=== PATIENT | male | born 1950 | race Caucasian/White ===

== ENCOUNTER 2021-01-07 04:52 | Emergency (ER) | payer MEDICARE, OTHER ==
[2021-01-07] MEDS ORDERED: Acetaminophen/oxyCODONE 325-5 MG Tab PO STA (05:52)
[2021-01-07] MEDS ORDERED: Ketorolac 30 MG/ML SDV IM ONE (05:53)
--- NOTE | 2021-01-07 05:59 | EDM.PDOC ---
ED HPI GENERAL MEDICAL PROBLEM - General Chief Complaint: Abdominal Pain Stated Complaint: ABD PAIN Time Seen by Provider: 01/07/21 05:45 Source of Information: Reports: Patient, Family, Old Records History Limitations: Reports: No Limitations - History of Present Illness INITIAL COMMENTS - FREE TEXT/NARRATIVE: 70 yo male presents with RUQ abd vs R anterior lower chest pain that may have began after he accidentally walked into a work bench at work a couple weeks ago. The pain was minimal until last night about 0200h. On his way to work this morning he diverted to the ER due to breaking out in a cold sweat from the pain. His has since joined him here in the ER. No fever or SOB. Onset: Today (got much worse today) Onset Date: 01/07/21 Onset Time: 02:00 (got much worse at this time) Duration: Hour(s): Location: Reports: Chest (R ant/lower), Abdomen (vs RUQ) Quality: Reports: Sharp Severity: Moderate (severe at times) Improves with: Reports: None Worsens with: Reports: Breathing (deep breathing worsens) Context: Reports: Other (See HPI) Associated Symptoms: Reports: Chest Pain (R lower anterior). Denies: Cough, Fever/Chills, Nausea/Vomiting, Rash, Shortness of Breath Treatments [employer]: Reports: Other (see below) (none) right lower back Pain Score (Numeric/FACES): 20 - Related Data Allergies Allergy/AdvReac Type Severity Reaction Status Date / Time No Known Allergies Allergy Verified 01/07/21 05:40 Home Meds: Home Meds Aspirin [Tavo Chewable] 81 mg PO DAILY 01/07/21 [History] allopurinoL [Zyloprim] 100 mg PO DAILY 01/07/21 [History] lisinopriL [Lisinopril] 10 mg PO DAILY 01/07/21 [History] Social & Family History - Tobacco Use Tobacco Use Status *Q: Never Tobacco User - Caffeine Use Caffeine Use: Reports: Soda - Recreational Drug Use Recreational Drug Use: No ED ROS GENERAL - Review of Systems Review Of Systems: See Below Constitutional: Denies: Fever, Chills HEENT: Reports: No Symptoms Respiratory: Reports: Pleuritic Chest Pain. Denies: Shortness of Breath, Wheezing, Cough, Sputum, Hemoptysis Cardiovascular: Reports: Chest Pain (R anterior/lower). Denies: Dyspnea on Exertion, Edema GI/Abdominal: Reports: Abdominal Pain (? RUQ abdominal pain). Denies: Black Stool, Bloody Stool, Constipation, Diarrhea, Distension, Flatus, Hematemesis, Hematochezia, Melena, Nausea, Vomiting : Reports: No Symptoms Musculoskeletal: Reports: No Symptoms Skin: Reports: No Symptoms Neurological: Reports: No Symptoms Psychiatric: Reports: No Symptoms ED EXAM, GI/ABD - Physical Exam Exam: See Below Exam Limited By: No Limitations General Appearance: Alert, WD/WN, No Apparent Distress Eyes: Bilateral: Normal Appearance Ears: Normal External Exam, Normal Canal, Hearing Grossly Normal Nose: Normal Inspection, No Blood Throat/Mouth: Normal Inspection, Normal Lips, Normal Oropharynx, Normal Voice, No Airway Compromise Head: Atraumatic, Normocephalic Neck: Normal Inspection Respiratory/Chest: No Respiratory Distress, Lungs Clear, Normal Breath Sounds, No Accessory Muscle Use. No: Chest Non-Tender (tender on R anterior lower most ribs) Cardiovascular: Regular Rate, Rhythm, No Edema GI/Abdominal Exam: Normal Bowel Sounds, Soft, No Distention, Tender (RUQ tenderness on exam). No: Non-Tender, Distended Back Exam: Normal Inspection. No: CVA Tenderness (R), CVA Tenderness (L) Extremities: Normal Inspection, Normal Range of Motion, Non-Tender, No Pedal Edema. No: Pedal Edema, Faviola's Sign Neurological: Alert, Oriented, CN II-XII Intact, Normal Cognition, No Mo tor/Sensory Deficits Psychiatric: Normal Affect, Normal Mood Skin Exam: Warm, Dry, Intact, Normal Color, No Rash Course - Vital Signs Last Recorded V/S: Last Vital Signs Temp 36.0 C L 01/07/21 05:39 Pulse 46 L 01/07/21 06:39 Resp 16 01/07/21 05:39 BP 138/80 01/07/21 06:39 Pulse Ox 100 01/07/21 05:39 - Orders/Labs/Meds Orders: Active Orders 24 hr Category Date Time Status Abdomen Ltd [US] Stat Exams 01/07/21 06:27 Ordered Ribs 3V wo Chest Rt [CR] Stat Exams 01/07/21 05:53 Taken Labs: Laboratory Tests 01/07/21 01/07/21 Range/Units 06:03 06:03 WBC 6.8 (4.5-11.0) K/uL RBC 4.02 L (4.30-5.90) M/uL Hgb 12.5 (12.0-15.0) g/dL Hct 38.6 L (40.0-54.0) % MCV 96 (80-98) fL MCH 31 (27-31) pg MCHC 32 (32-36) % Plt Count 213 (150-400) K/uL Sodium 146 (140-148) mmol/L Potassium 4.2 (3.6-5.2) mmol/L Chloride 106 (100-108) mmol/L Carbon Dioxide 29 (21-32) mmol/L Anion Gap 11.4 (5.0-14.0) mmol/L BUN 21 H (7-18) mg/dL Creatinine 1.1 (0.8-1.3) mg/dL Est Cr Clr Drug Dosing 66.55 mL/min Estimated GFR (MDRD) > 60 (>60) Glucose 146 H (74-106) mg/dL Calcium 8.9 (8.5-10.1) mg/dL Total Bilirubin 0.3 (0.2-1.0) mg/dL AST 23 (15-37) U/L ALT 38 (12-78) U/L Alkaline Phosphatase 77 (46-116) U/L C-Reactive Protein < 0.05 (0.0-0.3) mg/dL Total Protein 6.8 (6.4-8.2) g/dL Albumin 3.8 (3.4-5.0) g/dL Globulin 3.0 (2.3-3.5) g/dL Albumin/Globulin Ratio 1.3 (1.2-2.2) Meds: Medications Discontinued Medications Generic Name Dose Route Start Last Admin Trade Name Freq PRN Reason Stop Dose Admin Ketorolac Tromethamine 30 mg 01/07/21 05:53 01/07/21 06:32 Ketorolac 30 Mg/Ml Sdv IM 01/07/21 05:54 Not Given ONETIME ONE Ondansetron HCl 4 mg 01/07/21 06:13 01/07/21 06:29 Ondansetron 4 Mg Tab.Dis PO 01/07/21 06:14 4 mg ONETIME ONE Administration Oxycodone/Acetaminophen 1 tab 04/19/21 05:52 Acetaminophen/Oxycodone 325-5 Mg Tab PO 01/07/21 05:53 ONETIME STA - Radiology Interpretation Free Text/Narrative:: Rib X-rays Right with CXR-neg GB US-neg Jc's sign, there is a stone in the GB neck. Otherwise normal study. Departure - Departure Time of Disposition: 07:12 Disposition: Home, Self-Care 01 Condition: Fair Clinical Impression: Rib pain on right side - Discharge Information *PRESCRIPTION DRUG MONITORING PROGRAM REVIEWED*: Not Applicable *COPY OF PRESCRIPTION DRUG MONITORING REPORT IN PATIENT [place]: Not Applicable Instructions: Chest Wall Pain Referrals: Alfa Hernandez MD [Primary Care Provider] - Forms: ED Department Discharge Additional Instructions: Take acetaminophen OR [place] for pain relief. Recheck in the clinic this week. Off work today. Return as needed. Sepsis Event Note (ED) - Evaluation Sepsis Screening Result: No Definite Risk - Focused Exam Vital Signs: Vital Signs Temp Pulse Resp BP Pulse Ox 01/07/21 06:39 46 L 138/80 01/07/21 05:39 36.0 C L 44 L 16 188/81 H 100 01/07/21 05:37 36.0 C L 44 L 16 188/81 H 100 - My Orders Last 24 Hours: My Active Orders 01/07/21 05:53 Ribs 3V wo Chest Rt [CR] Stat 01/07/21 06:27 Abdomen Ltd [US] Stat - Assessment/Plan Last 24 Hours: My Active Orders 01/07/21 05:53 Ribs 3V wo Chest Rt [CR] Stat 01/07/21 06:27 Abdomen Ltd [US] Stat
[2021-01-07] MEDS ORDERED: Ondansetron 4 MG Tab.DIS PO ONE (06:13)
--- NOTE | 2021-01-07 12:14 | CR ---
Ribs 3V wo Chest Rt CLINICAL HISTORY: Right rib pain FINDINGS: There is no acute fracture within the ribs. No destructive changes are seen. There is no focal pleural thickening or obvious effusion. IMPRESSION: Negative right ribs.
--- NOTE | 2021-01-07 12:21 | US ---
Abdomen Ltd CLINICAL HISTORY: Right upper quadrant pain COMPARISON: None. TECHNIQUE: Real-time images were obtained through the right upper quadrant. FINDINGS: The liver is free of mass or biliary dilatation. There is some increased hepatic echotexture. Liver is mildly enlarged at 17 cm in length. The gallbladder contains a stone in the gallbladder neck. The common bile duct measures 5 mm. The pancreas is obscured. The right kidney has a normal appearance. The IVC is normal. IMPRESSION: Cholelithiasis with no biliary dilatation Mild hepatomegaly
== END 2021-01-07 07:24 | disposition home or self-care (01) ==
LOC: JP.ED 04:52
DX: R07.81 Pleurodynia (principal); Z79.82 Long term (current) use of aspirin; Z79.899 Other long term (current) drug therapy
CPT/HCPCS: 36415; 71101; 76705; 80053; 85027; 86140; 99284; A9270; 99283

== ENCOUNTER 2022-07-17 07:01 | Day surgery (SDC) | payer OTHER ==
[~2022-07-17 07:01] MED LIST: Lidocaine 1% with EPINEPHrine 1:100,000 50 ML MDV ONE
[2022-07-17] MEDS ORDERED: fentaNYL 100 MCG/2 ML SDV ONE (07:26)
[2022-07-17] MEDS ORDERED: Midazolam 1 MG/ML 2 ML SDV ONE (07:26)
[2022-07-17] MEDS ORDERED: Propofol 200 MG/20 ML SDV ONE (07:26)
[2022-07-17] MEDS: Sodium Chloride 0.9% 1,000 ML IV SCH (07:30)
[2022-07-17] MEDS ORDERED: Lidocaine 1% w/EPINEPHrine 50 ML, Sodium Bicarbonate 5 MEQ in Sodium Chloride 0.9% 950 ML INJECT ONE (08:45)
[2022-07-17] MEDS ORDERED: Sodium Tetradecyl Sulfate 1% 20 MG/2 ML SDV ONE ×2 (09:10→09:22)
== END 2022-07-17 10:41 | disposition home or self-care (01) ==
LOC: JP.SDS 07:01
PROVIDERS: ATTEND Surgery
DX: I87.2 Venous insufficiency (chronic) (peripheral) (principal); Z53.09 Procedure and treatment not carried out because of other contraindication; I47.1 Supraventricular tachycardia; K21.9 Gastro-esophageal reflux disease without esophagitis; M10.9 Gout, unspecified
CPT/HCPCS: 93005; J2250; J2704; J3010; J7030; J1642